=== PATIENT | female | born 1970 | race Caucasian/White ===

== ENCOUNTER 2020-07-06 11:13 | Day surgery (SDC) | payer OTHER, SELFPAY ==
[~2020-07-06] VITALS: Ht 172.7 cm; Wt 70.7 kg
[~2020-07-06 11:13] MED LIST: BUPR75 PO; CLOP75 PO; Daily Multiple1 EACH PO; ESCI10 PO; ESCI20 PO; HYDACE5 PO; LEVSOD50 PO; Lamisil250 MG PO; MULTIVITAMINS1 EAC3 PO; ONDA4ODT MM
[2020-07-06] MEDS ORDERED: PROG100 (11:49)
[2020-07-06] MEDS ORDERED: Adipex-P37.5 M1 PO (11:51)
[2020-07-06] MEDS ORDERED: PROG100 PO (11:51)
--- NOTE | 2020-07-06 13:11 | NUR ---
07/06/20 1311 Yola Hager BUPIVACAINE 0.5% & LIDOCAINE 1% 1:1 INJECTED PRE OP IN OR BY DR. DAVIS FOR PAIN CONTOROL. TOATL OF 18 MLS INJECTED.
== END 2020-07-06 14:24 | disposition home or self-care (01) ==
LOC: ORSCSDS 11:13
PROVIDERS: Podiatrist
PROC: 0SRQ0JZ Replacement of Left Toe Phalangeal Joint with Synthetic Substitute, Open Approach (ICD-10-PCS; principal; 2020-07-06 12:30)
PROC: 0SGQ04Z Fusion of Left Toe Phalangeal Joint with Internal Fixation Device, Open Approach (ICD-10-PCS; principal; 2020-07-06 12:30)
DX: M20.42 Other hammer toe(s) (acquired), left foot (principal); L84 Corns and callosities; Z79.899 Other long term (current) drug therapy
CPT/HCPCS: J0690; J2250; J2704; J3010; J7120

== ENCOUNTER 2021-04-16 06:47 | Day surgery (SDC) | payer OTHER ==
[~2021-04-16] VITALS: Ht 172.7 cm; Wt 75.1 kg
[~2021-04-16 06:47] MED LIST changes: +Adipex-P37.5 M1 PO; +EUTHYROX50 MCG PO; +PROG100; +PROG100 PO; +TERB250 PO
--- NOTE | 2021-04-16 07:32 | NUR ---
04/16/21 0732 Prema Clark 1 TRY RIGHT HAND MOVED
== END 2021-04-16 09:08 | disposition home or self-care (01) ==
LOC: ORSCSDS 06:47
PROVIDERS: Student in an Organized Health Care Education/Training Program
PROC: 0DBN8ZX Excision of Sigmoid Colon, Via Natural or Artificial Opening Endoscopic, Diagnostic (ICD-10-PCS; principal; 2021-04-16 08:00)
DX: Z12.11 Encounter for screening for malignant neoplasm of colon (principal); D12.5 Benign neoplasm of sigmoid colon
CPT/HCPCS: 88305; J2250; J2704